=== PATIENT | female | born 2000 | race Caucasian/White ===

== ENCOUNTER 2019-02-08 02:21 | Inpatient (IN) ==
[2019-02-08] MEDS ORDERED: ACETAMINOPHEN 1,000 MG/100 ML VIAL IV STA (02:43)
[2019-02-08] MEDS ORDERED: ALBUT/IPRATROP 3MG/0.5MG NEB 3 ML VIAL NEB STA (02:43)
[2019-02-08] MEDS ORDERED: KETOROLAC TROMETHAMINE 15 MG/ML VIAL IV STA (02:43)
[2019-02-08] MEDS ORDERED: SODIUM CHLORIDE 0.9% 1000ML 1,000 ML IV SCH (02:45)
[2019-02-08 03:12] LABS: Basophils # (auto) 0.02 K/uL (0-0.2); Basophils % (auto) 0.2 %; Eosinophils # (auto) 0.01 K/uL (0-0.5); Eosinophils % (auto) 0.1 %; Hematocrit (blood only) 33.8 % (37-47); Immature Granulocytes # (auto) 0.03 K/uL (0.00-0.02); Immature Granulocytes % (auto) 0.3 %; Lymphocytes # (auto) 0.93 K/uL (1.2-3.4); Lymphocytes % (auto) 8.4 %; Mean Corpuscular Hemoglobin 26.6 pg (25-34); Mean Corpuscular Hgb Conc 32.5 g/dL (32-36); Mean Corpuscular Volume 81.6 fL (80-100); Mean Platelet Volume 9.8 fL (7.4-10.4); Monocytes # (auto) 0.62 K/uL (0.11-0.59); Monocytes % (auto) 5.6 %; Neutrophils # (auto) 9.42 K/uL (1.4-6.5); Neutrophils % (auto) 85.4 %; Platelet Count 183 K/uL (130-400); RDW Coefficient of Variation 13.7 % (11.5-14.5); RDW Standard Deviation 40.8 fL (36.4-46.3); Red Blood Count 4.14 M/uL (4.2-5.4); White Blood Count 11.03 K/uL (4.8-10.8)
[2019-02-08 03:29] LABS: D Dimer 330 ug/L FEU (0-500)
[2019-02-08 03:30] LABS: Alanine Aminotransferase 18 U/L (12-78); Albumin Level 3.5 gm/dl (3.4-5.0); Aspartate Aminotransferase 11 U/L (15-37); BUN Creatinine Ratio 11.4 (10-20); Blood Urea Nitrogen 9 mg/dl (7-18); Calcium 8.9 mg/dl (8.5-10.1); Carbon Dioxide 24 mmol/L (21-32); Chloride 106 mmol/L (98-107); Creatinine Clr Calc Pharmacy 86.9 ml/min; Est GFR (Non-African American) 106.1; Glucose 106 mg/dl (70-99); Lipase 166 U/L (73-393); Magnesium 1.8 mg/dl (1.8-2.4); Potassium 3.5 mmol/L (3.5-5.1); Sodium 139 mmol/L (136-145)
[2019-02-08 03:35] LABS: Albumin Globulin Ratio 1.1 (0.9-2); Alkaline Phosphatase 63 U/L (45-117); Bilirubin,Total 0.5 mg/dl (0.2-1); Globulin 3.3 gm/dl (2.5-4.0); Total Protein 6.8 gm/dl (6.4-8.2); Troponin I < 0.015 ng/ml (0-0.045)
[2019-02-08] MEDS ORDERED: OPTIRAY 320 125ml IV PRN (03:59)
[2019-02-08] MEDS ORDERED: PIPERACILLIN/TAZOBACTAM 4.5 GM/120 ML BAG IV ONE (04:25)
[2019-02-08] MEDS ORDERED: PIPERACILL/TAZOBAC CONSULT ACTIVE PRN (04:25)
[2019-02-08] MEDS ORDERED: KETOROLAC TROMETHAMINE 15 MG/ML VIAL IV ONE (05:20)
[2019-02-08] MEDS ORDERED: KETOROLAC TROMETHAMINE 15 MG/ML VIAL ONE (05:29)
[2019-02-08] MEDS ORDERED: IPRATROPIUM BROMIDE NEB SOLN 0.02% 2.5 ML VIAL INH PRN (05:44)
[2019-02-08] MEDS ORDERED: BENZONATATE 100 MG CAPSULE PO PRN (05:44)
[2019-02-08] MEDS ORDERED: LEVALBUTEROL 1.25MG/0.5ML NEB INH PRN (05:44)
[2019-02-08] MEDS ORDERED: XOPENEX/ATROVENT 1.25mg/0.5MG NEB COMBO NEB PRN (05:44)
[2019-02-08] MEDS ORDERED: ONDANSETRON INJ 2 MG/ML 2 ML VIAL IV PRN (05:44)
[2019-02-08] MEDS ORDERED: ACETAMINOPHEN 325 MG TAB PO PRN (05:44)
[2019-02-08] MEDS ORDERED: DOXYCYCLINE HYCLATE 100 MG in DEXTROSE 5% 100 ML IV SCH (06:00)
--- NOTE | 2019-02-08 06:26 | XRay Report ---
XR chest 2V PA/lateral HISTORY: 18 years-old Female cough, fever acute cough with fever COMPARISON: CTA of the chest of same day TECHNIQUE: PA and lateral views of the chest FINDINGS: Cardiomediastinal and hilar silhouettes are within normal limits. No pneumothorax, pleural effusion o r overt pulmonary edema. Multifocal segmental alveolar opacities of the basal left lower lobe. Bones appear grossly intact. IMPRESSION: Basal left lower lobe airspace opacities are compatible with pneumonia. The above report was generated using voice recognition software. It may contain grammatical, syntax o r spelling errors. Electronically signed by: Peterson Menchaca M.D. 02/08/2019 6:25 AM
--- NOTE | 2019-02-08 06:30 | Emergency Department Note ---
History of Present Illness General Chief complaint: Respiratory Problems Stated complaint: CAN'T BREATHE,LUNGS FILLING W/ FLUID,COUGHING UP B Time Seen by Provider: 02/08/19 02:28 History of Present Illness Maximum Pain Intensity: 6 This is a 18-year-old female presenting to the emergency department for evaluation of flulike symptoms, coughing, and a reported episode of hemoptysis. The patient is accompanied by her mother who assist in the history. The patient is usually healthy and very active, often running 5 to 6 miles per day. The patient has had a subjective fever over the past 24 hours, and tonight began with profound coughing. She did have an episode of scant hemoptysis, and now presents to the ER for evaluation. The patient has not had a menstrual period in greater than 1 year and is not on control. The mother believes this is from her high level of exercise. The patient does have some history of OCD, and eats very healthy. Unfortunately, the patient does vape from time to time, and has been doing this throughout the semester. The patient does not have any recent significant travel history. No known exposure to disease. She rates her current discomfort a 6/10 and is reporting some very lateral left-sided rib pain. Home Medications Home Medications Medication Instructions Recorded Confirmed Type No Known Home Medications 02/08/19 02/08/19 History Allergies Allergy/AdvReac Type Severity Reaction Status Date / Time GENERALANESTHET Allergy Mild Uncoded 04/27/09 03:49 Past Med/Surg History Medical History (Updated 02/08/19 @ 06:49 by Shashi Sheldon PA-C) No chronic diseases present No significant past surgical history Social History Preferred Language: Vietnamese Facility Service Associate Required: No Beliefs That Will Affect Care: None Current Living Situation: Other Current Living Situation Comment: College Other Information That Helps Us Care for You: No Feels Safe at Home: Yes Safety Concerns: Feels Safe At This Time Smoking Status: Light tobacco smoker Tobacco Type: e-cigarettes ; Do You Dip or Chew Tobacco: No ; Second Hand Exposure: No ; Tobacco Cessation Education Requested by Patient: No Hx Alcohol Use: No Hx Substance Use: No Review of Systems A total of 10 systems reviewed and were otherwise negative Physical Exam Vital Signs Vital Signs - 24 hr 02/08/19 02:23 02/08/19 03:03 02/08/19 03:20 Temperature 36.7 C Temperature Source Oral Pulse Rate 92 H Pulse Rate [Right Finger] 84 Respiratory Rate 19 20 Respiratory Effort / Characteristics Non-Labored Spontaneous SOB on Exertion Respiratory Depth Normal Respiratory Pattern Regular Blood Pressure 102/69 Blood Pressure [Right Arm] Blood Pressure Mean 80 Blood Pressure Mean [Right Arm] Blood Pressure Position Sitting Pulse Oximetry 97 98 Oxygen Delivery Method Room Air Room Air Room Air Sepsis Recent Fever Within 48 Hours No Sepsis New/Unexplained Change in Mental Status No Sepsis Action Taken by Nursing No Action Required Pulse Oximetry Post Tiitration 95 02/08/19 03:55 Temperature 36.9 C Temperature Source Oral Pulse Rate Pulse Rate [Right Finger] 80 Respiratory Rate 18 Respiratory Effort / Characteristics Non-Labored Respiratory Depth Normal Respiratory Pattern Blood Pressure Blood Pressure [Right Arm] 110/58 L Blood Pressure Mean Blood Pressure Mean [Right Arm] 75 Blood Pressure Position Pulse Oximetry 99 Oxygen Delivery Method Room Air Sepsis Recent Fever Within 48 Hours Sepsis New/Unexplained Change in Mental Status Sepsis Action Taken by Nursing Pulse Oximetry Post Tiitration VITALS: Vitals are noted on the nurse's note and reviewed by myself. Vital signs stable. GENERAL: Ill-appearing white female who is diaphoretic HEAD: Normocephalic atraumatic. EARS: External ear normal. External auditory canals clear, tympanic membranes pearly mcghee without erythema or effusion bilaterally. EYES: Pupils equal round and reactive to light and accommodation. Conjunctivae without injection, sclerae without icterus. Extraocular movements intact. NOSE: Patent, turbinates without inflammation or discharge. MOUTH: Mucous membranes moist. Tonsils are not enlarged. Pharynx without erythema, blood, or exudate. Uvula midline. Airway patent. NECK: Supple without nuchal rigidity. No lymphadenopathy. No thyromegaly. Cervical spine is nontender. HEART: Regular rate and rhythm without murmurs gallops or rubs. LUNGS: Generally clear bilateral with decreased breath sounds in the left lower lobe. ABDOMEN: Positive normal bowel sounds x 4. Soft, nontender, without masses or organomegaly. No guarding or rebound tenderness. MUSCULOSKELETAL: No muscle atrophy, erythema, or edema noted. Full range of motion in all extremities. Course Administered Medications Acetaminophen (Tylenol) 650 mg PO Q4H PRN PRN Reason: pain/fever Stop: 03/10/19 05:43 Last Admin: 02/08/19 06:47 Dose: 650 mg Documented by: Doxycycline Hyclate 100 mg/ (Dextrose) 110 mls @ 50 mls/hr IV Q12H BOLIVAR Stop: 02/15/19 05:59 Last Admin: 02/08/19 06:22 Dose: 50 mls/hr Documented by: Discontinued Medications Albuterol (Duoneb) 3 ml NEB NOW STA Stop: 02/08/19 02:44 Last Admin: 02/08/19 03:19 Dose: 3 ml Documented by: [id number] Sodium Chloride (Nss 1000ml) 1,000 mls @ 999 mls/hr IV .Q1H1M BOLIVAR Stop: 02/08/19 03:45 Last Infusion: 02/08/19 03:55 Dose: 0 mls/hr Documented by: [id number] Admin: 02/08/19 02:58 Dose: 999 mls/hr Documented by: [id number] Acetaminophen (Ofirmev) 1,000 mg in 100 mls @ 400 mls/hr IV NOW STA Stop: 02/08/19 02:57 Last Infusion: 02/08/19 03:54 Dose: 0 mls/hr Documented by: [id number] Admin: 02/08/19 02:58 Dose: 400 mls/hr Documented by: [id number] Piperacillin Sod/Tazobactam Sod (Zosyn) 4.5 gm in 120 mls @ 240 mls/hr IV NOW ONE Stop: 02/08/19 04:54 Last Infusion: 02/08/19 05:35 Dose: 0 mls/hr Documented by: [id number] Admin: 02/08/19 05:04 Dose: 240 mls/hr Documented by: [id number] Ioversol (Optiray 320 125ml) 125 ml IV ONCE PRN PRN Reason: Interaction Checking Stop: 02/12/19 03:58 Last Admin: 02/08/19 03:59 Dose: 83 ml Documented by: [id number] Ketorolac Tromethamine (Toradol) 15 mg IV NOW STA Stop: 02/08/19 02:44 Last Admin: 02/08/19 02:58 Dose: 15 mg Documented by: [id number] Ketorolac Tromethamine (Toradol) 15 mg IV NOW ONE Stop: 02/08/19 05:21 Last Admin: 02/08/19 05:30 Dose: 15 mg Documented by: [id number] Ketorolac Tromethamine (Toradol) Confirm Administered Dose 15 mg .ROUTE .STK-MED ONE Stop: 02/08/19 05:30 Last Admin: 02/08/19 06:14 Dose: Not Given Documented by: [id number] Medical Decision Making Differential Diagnosis Differential diagnosis: Etiologies such as viral syndrome, otitis, pharyngitis, pneumonia, influenza, meningitis, urinary tract infection, septic arthritis, soft tissue infectious process, intra-abdominal process, sepsis, bacteremia, as well as others were entertained. Laboratory Data Result diagrams: 02/08/19 02:50 02/08/19 02:50 Lab Results 02/08/19 02/08/19 02/08/19 Range/Units 02:50 02:50 02:50 WBC 11.03 H (4.8-10.8) K/uL RBC 4.14 L (4.2-5.4) M/uL Hgb 11.0 L (12.0-16.0) g/dL Hct 33.8 L (37-47) % MCV 81.6 (80-100) fL MCH 26.6 (25-34) pg MCHC 32.5 (32-36) g/dL RDW Std Deviation 40.8 (36.4-46.3) fL RDW Coeff of Shan 13.7 (11.5-14.5) % Plt Count 183 (130-400) K/uL MPV 9.8 (7.4-10.4) fL Immature Gran % (Auto) 0.3 % Neut % (Auto) 85.4 % Lymph % (Auto) 8.4 % Frio % (Auto) 5.6 % Eos % (Auto) 0.1 % Baso % (Auto) 0.2 % Immature Gran # (Auto) 0.03 H (0.00-0.02) K/uL Neut # (Auto) 9.42 H (1.4-6.5) K/uL Lymph # (Auto) 0.93 L (1.2-3.4) K/uL Frio # (Auto) 0.62 H (0.11-0.59) K/uL Eos # (Auto) 0.01 (0-0.5) K/uL Baso # (Auto) 0.02 (0-0.2) K/uL D-Dimer 330 (0-500) ug/L FEU Sodium 139 (136-145) mmol/L Potassium 3.5 (3.5-5.1) mmol/L Chloride 106 (98-107) mmol/L Carbon Dioxide 24 (21-32) mmol/L Anion Gap 9.0 (3-11) BUN 9 (7-18) mg/dl Creatinine 0.80 (0.6-1.2) mg/dl Est Cr Clr Drug Dosing 86.9 ml/min Est GFR ( Amer) 123.0 Est GFR (Non-Af Amer) 106.1 BUN/Creatinine Ratio 11.4 (10-20) Glucose 106 H (70-99) mg/dl Calcium 8.9 (8.5-10.1) mg/dl Magnesium 1.8 (1.8-2.4) mg/dl Total Bilirubin 0.5 (0.2-1) mg/dl AST 11 L (15-37) U/L ALT 18 (12-78) U/L Alkaline Phosphatase 63 (45-117) U/L Troponin I < 0.015 (0-0.045) ng/ml Total Protein 6.8 (6.4-8.2) gm/dl Albumin 3.5 (3.4-5.0) gm/dl Globulin 3.3 (2.5-4.0) gm/dl Albumin/Globulin Ratio 1.1 (0.9-2) Lipase 166 (73-393) U/L Influenza Type A Ag (Neg) Influenza Type B Ag (Neg) 02/08/19 Range/Units 02:50 WBC (4.8-10.8) K/uL RBC (4.2-5.4) M/uL Hgb (12.0-16.0) g/dL Hct (37-47) % MCV (80-100) fL MCH (25-34) pg MCHC (32-36) g/dL RDW Std Deviation (36.4-46.3) fL RDW Coeff of Shan (11.5-14.5) % Plt Count (130-400) K/uL MPV (7.4-10.4) fL Immature Gran % (Auto) % Neut % (Auto) % Lymph % (Auto) % Frio % (Auto) % Eos % (Auto) % Baso % (Auto) % Immature Gran # (Auto) (0.00-0.02) K/uL Neut # (Auto) (1.4-6.5) K/uL Lymph # (Auto) (1.2-3.4) K/uL Frio # (Auto) (0.11-0.59) K/uL Eos # (Auto) (0-0.5) K/uL Baso # (Auto) (0-0.2) K/uL D-Dimer (0-500) ug/L FEU Sodium (136-145) mmol/L Potassium (3.5-5.1) mmol/L Chloride (98-107) mmol/L Carbon Dioxide (21-32) mmol/L Anion Gap (3-11) BUN (7-18) mg/dl Creatinine (0.6-1.2) mg/dl Est Cr Clr Drug Dosing ml/min Est GFR ( Amer) Est GFR (Non-Af Amer) BUN/Creatinine Ratio (10-20) Glucose (70-99) mg/dl Calcium (8.5-10.1) mg/dl Magnesium (1.8-2.4) mg/dl Total Bilirubin (0.2-1) mg/dl AST (15-37) U/L ALT (12-78) U/L Alkaline Phosphatase (45-117) U/L Troponin I (0-0.045) ng/ml Total Protein (6.4-8.2) gm/dl Albumin (3.4-5.0) gm/dl Globulin (2.5-4.0) gm/dl Albumin/Globulin Ratio (0.9-2) Lipase (73-393) U/L Influenza Type A Ag Neg for Influ A (Neg) Influenza Type B Ag Neg for Influ B (Neg) Imaging Data Radiologist's Impression: XR chest 2V PA/lateral HISTORY: 18 years-old Female cough, fever acute cough with fever COMPARISON: CTA of the chest of same day TECHNIQUE: PA and lateral views of the chest FINDINGS: Cardiomediastinal and hilar silhouettes are within normal limits. No pneumothorax, pleural effusion or overt pulmonary edema. Multifocal segmental alveolar opacities of the basal left lower lobe. Bones appear grossly intact. IMPRESSION: Basal left lower lobe airspace opacities are compatible with p neumonia. Preliminary Findings Only See Final Report For Complete Findings CTA CHEST: Left lower lobe heterogeneously/dense airspace disease. Mucous plugging involving the mid to distal airways associated with the left lower lobe. Findings suggest post obstructive pneumonia in the appropriate clinical setting which can be followed to resolution. Reactive left infrahilar adenopathy. No PE. No aneurysm or dissection. No [place] or pericardial effusion. No significant pleural effusion or pneumothorax. Right lung is clear. No unusual lytic or destructive lesions of bone. ECG Data Additional Comments: Normal sinus rhythm @88bpm No acute ST elevation Rightward axis Borderline ECG No previous ECGs available MDM Narrative Physical exam and history were performed. Nursing notes, EMR, and Medication List were personally reviewed. Patient appears to have flulike symptoms with cough and subjective fever. On examination she does appear ill and does have diminished sounds in the left lower lobe. IV access was established and labs were obtained. The patient was hydrated with normal saline. Because of her left-sided chest wall pain she was given IV Toradol. She was administered a DuoNeb and sent to chest x-ray. She was placed on the radiation control specialist. The patient's blood work is as above and was reviewed. She does have a minimally elevated white blood cell count of 11,000. Hemoglobin is 11 and hematocrit is 33.8. She does not have a significant electrolyte imbalance. Troponin x1 is negative. Influenza is also negative. Chest x-ray was reviewed by myself and my attending, and is highly concerning for a left lower lobe pneumonia. Due to the patient's history of vaping, I did elect perform a CT scan of the chest. CT scan was reviewed by myself and radiology and is concerning for a mucous plugging obstructive pneumonia of the left lower lobe. Overall the patient does not appear well for discharge home. There is concerned that her symptoms certainly could worsen. The patient was started on IV Zosyn here in the department. The case was discussed with the on-call hospitalist, who agreed to evaluate the patient here in the department. Please see the hospitalist dictation for further patient course, plan, and disposition. The chart was completed utilizing [employer] Voice Recognition Software. Grammatical errors, random word insertions, pronoun errors, and incomplete sentences are an occasional consequence of this system due to software limitations, ambient noise, and hardware issues. Any formal questions or rosa rns about the content, text, or information contained within the body of this dictation should be directly addressed to the provider for clarification. . Impression & Plan Left lower lobe pneumonia, Left-sided chest pain Discharge Plan Visit Data *Final* Discharge Date/Time: 02/08/19 05:35 Chief Complaint: Respiratory Problems Stated Complaint: CAN'T BREATHE,LUNGS FILLING W/ FLUID,COUGHING UP B ED Provider: Makeda Lobato ED Midlevel Provider: Shashi Sheldon Discharge Problem: Left lower lobe pneumonia, Left-sided chest pain Patient Disposition: Admitted As Inpatient Discharge Instructions Interventions: ED Discharge Assessment Last Done: 02/08/19 05:35
--- NOTE | 2019-02-08 06:38 | CT Scan Report ---
CT angio chest PE protocol CT DOSE: 221.81 mGy.cm HISTORY: Chest pain. Cough. PE TECHNIQUE: Multiaxial CT images of the chest were performed following the intravenous administration of contrast to evaluate the pulmonary arteries. Maximal intensity projection images were also obtaine d. A dose lowering technique was utilized adhering to the principles of ALARA. COMPARISON STUDY: None. FINDINGS: Bony vasculature enhances appropriately. No significant filling defects. Upper lungs are clear. Diffuse consolidative infiltrate of the left lower lobe. IMPRESSION: 1. Diffuse consolidative infiltrate left lower lobe. 2. No evidence for pulmonary embolus. The above report was generated using voice recognition software. It may contain grammatical, syntax or spelling errors. Electronically signed by: Anthony Lloyd M.D. 02/08/2019 6:37 AM
--- NOTE | 2019-02-08 07:28 | History and Physical Report ---
DATE OF ADMISSION: 02/08/2019 CHIEF COMPLAINT: Cough, hemoptysis, shortness of breath. HISTORY OF PRESENT ILLNESS: This is a 18-year-old female with no significant past medical history, presents with 1 day duration of coughing up bloody sputum one episode about 2 teaspoons of blood and worsening short of breath and having left-sided chest pain and had fever at home and came here and imaging studies showed left lower lobe pneumonia. Hemodynamically stable. White count is mildly elevated at 11. Flu is negative. Currently resting comfortably. Toradol help her with pain, but is coming back. Denies any headache, no dizziness, no blurred vision, no earache. Has some runny nose and some sore throat and some difficulty swallowing. Appetite is not that great. Did not sleep well because of the pain.Shortness of breath improved with breathing treatment in the ER. No nausea, no vomiting, no abdominal pain. Normal bowel and bladder movements. No hematuria or burning micturition, but she is micturating frequently. No diarrhea, no constipation, no blood in the stools. No swelling in the legs, no rash. ALLERGIES: General anesthesia. PAST MEDICAL HISTORY: As mentioned above. PAST SURGICAL HISTORY: Removal of object from the nose. MEDICATIONS: Melatonin. FAMILY HISTORY: No family history on file. SOCIAL HISTORY: No smoking, no alcohol, no drug use. She only does vaping, currently goes to [facility]. REVIEW OF SYMPTOMS: As per HPI. Rest of review of systems negative. PHYSICAL EXAMINATION: GENERAL: The patient is moderate build, not in acute distress. VITAL SIGNS: Temperature 36.9, pulse 80, respiratory rate 18, blood pressure 110/58, oxygen 99% room air. HEENT: No pallor, no icterus. Pupils equal, round, reactive to light. NECK: No JVD, no neck masses, no carotid bruit. CARDIOVASCULAR: S1, S2 heard, regular rate and rhythm, no murmur, no gallop. RESPIRATORY SYSTEM: Normal AP diameter. No murmurs. No wheezing, no crackles. ABDOMEN: Soft, bowel sounds present, nontender. No distention. CENTRAL NERVOUS SYSTEM: Cranial nerves II-XII grossly nonfocal. EXTREMITIES: No edema, no erythema. LABORATORY DATA: WBC 11, hemoglobin 11, hematocrit 33.8, platelets 183. D-dimer 330. Sodium 139, potassium 3.5, chloride 106, bicarb 24, BUN 9, creatinine 0.8, serum glucose 106, calcium 8.9, magnesium 1.8, total bilirubin 0.5, AST 11, ALT 18, alkaline phosphatase of 63, troponin I less than 0.015. Lipase 166. Influenza A and B negative. Chest x-ray, left lower lobe infiltrate. CT of the chest, official report pending. EKG: Normal sinus rhythm with rate of 88, no acute ST changes seen. ASSESSMENT AND PLAN: This 18-year-old female who presents with chest pain, cough with some hemoptysis and found to have left lower lobe pneumonia. 1. Left lower lobe pneumonia, presented with cough with 1 episode of small amount of blood. D-dimer is negative. Chest x-ray, left lower lobe infiltrate, mild elevation of white count, hemodynamically stable. CTA of the chest pending. Empiric IV Zosyn in the ER. We will continue with Rocephin and doxycycline. Follow the cultures. Monitor in the medical floor. 2. Chest pain, most likely from above. Initial troponin negative. EKG unremarkable. Follow the second set of troponin. 3. Deep venous thrombosis prophylaxis, sequential compression devices. DISPOSITION: Admit to medical floor. Expect discharge home and follow with family doctor. Level 1 full code. MTDD
[2019-02-08] MEDS ORDERED: cefTRIAXone SODIUM 1,000 MG in DEXTROSE 5% 50 ML IV SCH (08:00)
--- NOTE | 2019-02-08 08:04 | Discharge Summary ---
Date of Service February 08, 2019 Admission HPI Per Admitting Provider This is a 18-year-old female with no significant past medical history, presents with 1 day duration of coughing up bloody sputum one episode about 2 teaspoons of blood and worsening short of breath and having left-sided chest pain and had fever at home and came here and imaging studies showed left lower lobe pneumonia. Hemodynamically stable. White count is mildly elevated at 11. Flu is negative. Currently resting comfortably. Toradol help her with pain, but is coming back. Denies any headache, no dizziness, no blurred vision, no earache. Has some runny nose and some sore throat and some difficulty swallowing. Appetite is not that great. Did not sleep well because of the pain, cough and shortness of breath improved with breathing treatment in the ER. No nausea, no vomiting, no abdominal pain. Normal bowel and bladder movements. No hematuria or burning micturition, but she is going to bathroom. She is micturating frequently. No diarrhea, no constipation, no blood in the stools. No swelling in the legs, no rash. Admission Exam Per Admitting Provider GENERAL: The patient is moderate build, not in acute distress. VITAL SIGNS: Temperature 36.9, pulse 80, respiratory rate 18, blood pressure 110/58, oxygen 99% room air. HEENT: No pallor, no icterus. Pupils equal, round, reactive to light. NECK: No JVD, no neck masses, no carotid bruit. CARDIOVASCULAR: S1, S2 heard, regular rate and rhythm, no murmur, no gallop. RESPIRATORY SYSTEM: Normal AP diameter. No murmurs. No wheezing, no crackles. ABDOMEN: Soft, bowel sounds present, nontender. No distention. CENTRAL NERVOUS SYSTEM: Cranial nerves II-XII grossly nonfocal. EXTREMITIES: No edema, no erythema. Principal Diagnosis Pneumonia LLL Hemoptysis Discharge Exam Physical Exam Gen-AAO x 3, NAD, Afebrile, Non Toxic Head-NCAT, EOMI, PERRLA, Anicteric Sclera, No Posterior Pharyngeal Erythema Neck-Supple, No JVD, No Thyromegaly, No Masses, No LAD, No Bruits Lungs-+ LL Rales, No Rhonchi, No Wheezing, No Crepitus Chest-No S4, +S1, +S2, No S3, No Murmurs, No Rubs, No Gallops, No Ectopy Abdomen-Soft, Bowel Sounds Present, Non Tender, Non Distended, No Hepatomegaly, No Splenomegaly, No Palpable Masses, No Rebound, No Rigidity, No Guarding Musculoskeletal-Full Range of Motion Bilaterally, No CVAT Extremities-No Cyanosis, No Clubbing, No Edema Nuero-Cranial Nerves II-XII grossly intact, Motor WNL, DTRs WNL, Strength WNL, Non Focal Psych-Normal Mood Discharge Data Allergies Allergy/AdvReac Type Severity Reaction Status Date / Time GENERALANESTHET Allergy Mild Uncoded 04/27/09 03:49 Consultations 02/08/19 04:36 ED Decision to Admit Stat Ordered Studies 02/08/19 03:28 CT angio chest PE protocol Urgent Allergies GENERALANESTHET Allergy (Mild, Uncoded 04/27/09 03:49) Height/Weight/Isolation Height 5 ft 3 in Weight 51.2 kg Chemistry 02/08/19 02:50 Sodium 139 Potassium 3.5 Chloride 106 Carbon Dioxide 24 Anion Gap 9.0 BUN 9 Creatinine 0.80 Glucose 106 H Microbiology 02/08/19 06:27 Blood Aerobic Blood Culture - Pending 02/08/19 06:27 Blood Anaerobic Blood Culture - Pending 02/08/19 06:33 Blood Aerobic Blood Culture - Pending 02/08/19 06:33 Blood Anaerobic Blood Culture - Pending Hospital Course (1) Left lower lobe pneumonia: DC Home today on Omnicef and Zithromax, f/u c Dr April STOVER 2. Hemoptysis-Treat PNA 3. Leukocytosis-Will Resolve f/u CXR 6 weeks Total Time Total Time Spent Total Time Spent (In Minutes): 45 mins Total Time Includes: Examination of the Patient, Discharge Planning, Medication Reconciliation and Communication With Other Providers Discharge Plan Discharge Items Reason For Visit: SOB, COUGH, HEMOPTYSIS Stand-Alone Forms: [facility] Locals[facility] Medications and DC Order Prescriptions: No Action No Known Home Medications RF: 0 Admission Data Admit Date/Time: 02/08/19 05:13 Attending Provider: Bj Emery Admit Provider: Markell Hopkins Primary Care Provider: Geoffrey Chen Other Providers: Markell Hopkins
== END 2019-02-08 09:30 | disposition home or self-care (01) | DRG 195 ==
LOC: ED 02:21 → 4W 05:13